=== PATIENT | female | born 1940 | race Hispanic/Latino ===

== ENCOUNTER → 2024-02-14 | Day surgery (SDC) | payer MEDICARE ==
[2024-02-06 14:51] LABS: BASOPHILS % 0.2 % (0.0-1.0); EOSINOPHILS # (AUTO) 0.1 (0.0-0.4); EOSINOPHILS % 1.1 % (0.0-6.0); HEMATOCRIT 38.8 % (34.2-44.1); HEMOGLOBIN 12.5 g/dL (12.0-16.0); LYMPHOCYTES # (AUTO) 1.8 (1.0-3.2); LYMPHOCYTES % 37.6 % (18.0-39.1); MEAN CORPUSCULAR HEMOGLOBIN 28.9 pg (28-32); MEAN CORPUSCULAR HGB CONC 32.2 g/dL (31-35); MEAN CORPUSCULAR VOLUME 89.8 fL (81-99); MONOCYTES # (AUTO) 0.4 (0.2-0.8); MONOCYTES % 7.5 % (4.4-11.3); NEUTROPHILS # (AUTO) 2.5 (2.1-6.9); NEUTROPHILS % 53.4 % (38.7-80.0); PLATELET COUNT 153 x10e3/uL (140-360); RED BLOOD COUNT 4.32 x10e6/uL (3.6-5.1); RED CELL DISTRIBUTION WIDTH 13.3 % (11.7-14.4); WHITE BLOOD COUNT 4.68 x10e3/uL (4.8-10.8)
[~2024-02-14] MED LIST: AMBIEN10 MG PO; ASPIRIN81 MG PO; ATIVAN1 MG PO; COREG12.5 MG PO; CRANBERRY200 MG; CYMBALTA20 MG PO; DIOVAN160 MG PO; FAMOTIDINE20 MG PO; FISH OIL 1,0001 EAC7; FUROSEMIDE40 MG PO; LACTATED RINGER'S 1,000 ML ONE; LEVOTHYROXINE100 MC1 IV; LEVOTHYROXINE112 MCG PO; METHENAMINE HIPP1 GM PO; MULTI-VITAMIN1 EACH PO; PROBIOTIC; ROSUVASTATIN CA40 MG PO; TUMERIC; VALACYCLOVIR500 MG PO; VITAMIN D31250 MCG; ZETIA10 MG PO; ZYRTEC10 M3
[2024-02-14 10:45] VITALS: TEMP 97.8
[2024-02-14 11:15] VITALS: BP 124/75; PULSE 68; RESP 15; O2SAT 98
== END | disposition home or self-care (01) ==
LOC: OR 07:16 → MERGE 07:16 → EDBD 13:00
PROVIDERS: ATTEND Internal Medicine Gastroenterology
DX: K29.50 Unspecified chronic gastritis without bleeding (principal); B96.81 Helicobacter pylori [H. pylori] as the cause of diseases classified elsewhere; K21.9 Gastro-esophageal reflux disease without esophagitis; K64.8 Other hemorrhoids; I71.40 Abdominal aortic aneurysm, without rupture, unspecified; E78.5 Hyperlipidemia, unspecified; B37.0 Candidal stomatitis; Z78.9 Other specified health status; I10 Essential (primary) hypertension; E03.9 Hypothyroidism, unspecified; M19.90 Unspecified osteoarthritis, unspecified site; G89.29 Other chronic pain; F41.9 Anxiety disorder, unspecified; Z01.810 Encounter for preprocedural cardiovascular examination; Z01.812 Encounter for preprocedural laboratory examination; Z79.82 Long term (current) use of aspirin; Z79.899 Other long term (current) drug therapy; Z68.28 Body mass index [BMI] 28.0-28.9, adult; Z80.0 Family history of malignant neoplasm of digestive organs
CPT/HCPCS: 36415; 43239; 45378; 85025; 88305; 88342; 93005; J7121

== ENCOUNTER → 2024-10-10 | Outpatient (REF) | payer MEDICARE ==
[~2024-10-10] MED LIST changes: -LACTATED RINGER'S 1,000 ML ONE
== END ==
LOC: US 11:03
PROVIDERS: ATTEND Family Medicine Adult Medicine
DX: R22.2 Localized swelling, mass and lump, trunk (principal)
CPT/HCPCS: 76882